=== PATIENT | male | born 1960 | race Hispanic/Latino ===

== ENCOUNTER 2020-04-13 12:03 | Emergency (ER) | payer SELFPAY ==
[2020-04-13] MEDS ORDERED: Caclcium Chloride 10% INJ SYR IV ONE (12:04)
[2020-04-13] MEDS ORDERED: NA CHLORIDE 0.9% 1,000 ML IV ONE (12:04)
[2020-04-13] MEDS ORDERED: AMIODARONE HCL 150 MG/3 ML INJ IV ONE (12:04)
[2020-04-13] MEDS ORDERED: EPINEPHrine 1 MG/10 ML SYR IV ONE (12:04)
[2020-04-13] MEDS ORDERED: EPINEPHrine 4 MG in NA CHLORIDE 0.9% 250 ML IV PRN (12:29)
[2020-04-13 12:43] LABS: Absolute Lymphocytes (CBC) 4.6 K/uL (0.7-4.9); Basophils % 0.5 % (0-1.3); Hematocrit 30.1 % (39.6-49.0); Lymphocytes % 59.9 % (15.3-44.8); MPV 9.7 fL (7.6-11.3); RBC Red Blood Cell Count 3.07 M/uL (4.33-5.43)
[2020-04-13] MEDS ORDERED: NOREPINEPHRINE 4mg/D5W 250mL 4 MG/250 ML BAG IV ONE ×3 (12:46→15:06)
[2020-04-13 12:47] LABS: Protime INR 1.39
[2020-04-13] MEDS ORDERED: NA CHLORIDE 0.9% 2,000 ML ONE (12:51)
[2020-04-13 13:05] LABS: Albumin 1.8 g/dL (3.4-5.0); Bilirubin Direct 0.1 mg/dL (0-0.2); Bilirubin Total 0.3 mg/dL (0.2-1.0); Magnesium 2.6 mg/dL (1.8-2.4); Potassium 3.2 mmol/L (3.5-5.1); Protein, Total 3.8 g/dL (6.4-8.2); Troponin (Emerg Dept Use Only) 0.4 ng/mL (0.0-0.045)
[2020-04-13 13:11] LABS: Barbiturates NEGATIVE (NEGATIVE); Benzodiazepines NEGATIVE (NEGATIVE); Cocaine NEGATIVE (NEGATIVE); METHAMPHETAM NEGATIVE (NEGATIVE); Methadone NEGATIVE (NEGATIVE); Opiates NEGATIVE (NEGATIVE); Phencyclidine NEGATIVE (NEGATIVE); THC Cannibis NEGATIVE (NEGATIVE)
--- NOTE | 2020-04-13 13:14 | RAD REPORT ---
EXAM DESCRIPTION: RAD - Chest Single View - 04/13/2020 1:08 pm CLINICAL HISTORY: CHEST PAIN Chest pain. COMPARISON: No comparisons FINDINGS: Portable technique limits examination quality. Moderate bilateral pulmonary opacities are present probably representing pulmonary edema. The heart i s normal in size. Tip of the ET tube is above the maribel. Enteric tube descends into the stomach.
[2020-04-13 13:20] LABS: Urine Blood 3+ (NEG); Urine Glucose NEGATIVE (NEG); Urine Protein 2+ (NEG); Urine Specific Gravity >1.030 (1.005-1.030)
--- NOTE | 2020-04-13 13:26 | EDPHYS ---
Physician Documentation [facility] Name: Noel Reid Age: 59 yrs Sex: Male : 1960 Arrival Date: 04/13/2020 Time: 12:05 Bed 3 Private MD: ED Physician Lm Gaona HPI: 04/13 12:43 This 59 yrs old Male presents to ER via EMS with complaints of CPR. juliann 12:43 Preceding the arrest, the patient collapsed, had chest pain, was dyspneic. The arrest juliann occurred at work. Pre-hospital course: The arrest was witnessed Bystanders at the scene performed CPR. EMS care prior to arrival: initiation of ACLS, peripheral IV, intubation oxygen, C-collar, backboard. The patient has not experienced similar symptoms in the past. Historical: - Allergies: 14:42 No Known Allergies; jl7 - Home Meds: 14:42 None [Active]; jl7 - PMHx: 14:42 Hyperlipidemia; jl7 - PSHx: 14:42 None; jl7 - Immunization history:: Adult Immunizations unknown. - Social history:: Smoking status: Patient denies any tobacco usage or history of. - Family history:: not pertinent. ROS: 12:43 Unable to obtain ROS due to cpr, intubated ,unresponsive. juliann Exam: 12:43 Eyes: Pupils: dilated, bilaterally, Extraocular movements: no acute changes. juliann 12:43 Cardiovascular: Rate: zero, Rhythm: pea, v fib, Pulses: not palpable, Heart sounds: none, Edema: is not appreciated, JVD: is noted bilaterally, to the angle of the jaw. 12:43 Respiratory: intubated, clear breath sounds. Vital Signs: 12:45 BP 77 / 57; Pulse 101; Resp 18 A; Temp 94.7; Pulse Ox 85% on ETT ambu; iw 13:00 BP 83 / 63; Pulse 86; Resp 38 A; Temp 95.2(C); Pulse Ox 98% on ETT vent; jl7 13:41 BP 93 / 67; Pulse 88; Resp 16 A; Temp 93.8; Pulse Ox 75% on ETT vent; iw 14:00 BP 107 / 89; Pulse 88; Resp 39; Temp 93.8; Pulse Ox 97% ; jl7 14:42 Temp 93.7(C); Weight 63.5 kg (R); MDM: 12:40 Patient medically screened. [facility] 12:46 Data reviewed: vital signs, nurses notes, lab test result(s), EKG, radiologic studies, [facility] CT scan, ultrasound. Data interpreted: see fran. Test interpretation: by ED physician or midlevel provider: ECG, not applicable, none. 13:20 Differential diagnosis: arrythmia, cardiac arrest, respiratory arrest. Physician [facility] consultation: Gabriele Alarcon MD and will see patient in ED, immediately. ED course: pt sp mi, cpr, v fib, unstable at this time, on pressors, dr la to cath when stable. 13:47 ED course: change of plans, to [facility], splenic laceration. [facility] 04/13 12:30 Order name: Basic Metabolic Panel; Complete Time: 13:40 [facility] 04/13 12:30 Order name: CBC with Diff; Complete Time: 13:49 [facility] 04/13 12:30 Order name: LFT's; Complete Time: 13:40 [facility] 04/13 12:30 Order name: Magnesium; Complete Time: 13:40 [facility] 04/13 12:30 Order name: NT PRO-BNP; Complete Time: 13:40 [facility] 04/13 12:30 Order name: PT-INR; Complete Time: 12:48 [facility] 04/13 12:30 Order name: Troponin (emerg Dept Use Only); Complete Time: 13:40 [facility] 04/13 12:43 Order name: UDS; Complete Time: 13:40 [facility] 04/13 12:43 Order name: ABG [facility] 04/13 12:58 Order name: Urine Dipstick--Ancillary (enter results); Complete Time: 13:40 ar 04/13 13:42 Order name: Type And Screen iw 04/13 13:48 Order name: Manual Differential; Complete Time: 13:49 [facility] 04/13 14:20 Order name: ABG sv 04/13 12:22 Order name: Echo w/ Doppler ar 04/13 12:30 Order name: XRAY Chest (1 view); Complete Time: 13:40 [facility] 04/13 13:22 Order name: Head C Spine Cap Wo Con EDKS 04/13 12:30 Order name: EKG; Complete Time: 12:31 04/13 12:30 Order name: Cardiac monitoring; Complete Time: 12:59 04/13 12:30 Order name: EKG - Nurse/Tech; Complete Time: 12:59 04/13 12:30 Order name: IV Saline Lock; Complete Time: 12:04/13 12:30 Order name: Labs collected and sent; Complete Time: 12:59 04/13 12:30 Order name: O2 Per Protocol; Complete Time: 12:04/13 12:30 Order name: O2 Sat Monitoring; Complete Time: 12:04/13 12:47 Order name: Ocampo; Complete Time: 12:50 juliann Administered Medications: 12:02 Drug: EPINEPHrine 0.1mg/mL 1:10,000 1 mg Route: IVP; Site: right antecubital; iw 12:03 Drug: amiodarone 300 mg Route: IVP; Site: right antecubital; iw 12:03 Drug: Sodium Bicarbonate 1 amp Route: IVP; Site: right antecubital; iw 12:09 Drug: EPINEPHrine 0.1mg/mL 1:10,000 1 mg Route: IVP; Site: right antecubital; iw 12:11 Drug: Sodium Bicarbonate 1 amp Route: IVP; Site: right antecubital; iw 12:12 Drug: EPINEPHrine 0.1mg/mL 1:10,000 1 mg Route: IVP; Site: right antecubital; iw 12:17 Drug: amiodarone 150 mg Route: IVP; Site: right antecubital; iw 12:18 Drug: Calcium Chloride 1 grams Route: IVP; Site: right femoral; iw 12:19 Drug: EPINEPHrine 0.1mg/mL 1:10,000 1 mg Route: IVP; Site: right femoral; iw 12:24 Drug: EPINEPHrine 0.1mg/mL 1:10,000 1 mg Route: IVP; Site: right antecubital; iw 12:45 Drug: Levophed (4 mg/250 mL D5W 4 mcg/min Route: IV; Rate: calculated rate; Site: right jl7 femoral; 14:45 Follow up: IV Status: Infusion continued upon transfer [facility] 12:50 Drug: Epinephrine Drip - (EPINEPHrine (PF) 4 mg, Sodium Chloride 0.9% 250 ml) Route: jl7 IV; Rate: calculated rate; Site: right femoral; 14:46 Follow up: Response: No adverse reaction; IV Status: Infusion continued upon transfer jl7 13:00 Drug: NS 0.9% 1000 ml Route: IV; Rate: 1 bolus; Site: right antecubital; jl7 14:00 Follow up: Response: No adverse reaction; IV Status: Completed infusion; IV Intake: jl7 1000ml 13:44 Drug: NS 0.9% 1000 ml Route: IV; Rate: 1 bolus; Site: right femoral; jl7 14:30 Follow up: Response: No adverse reaction; IV Status: Completed infusion; IV Intake: jl7 1000ml 14:30 Drug: Ativan 2 mg Route: IVP; Site: right antecubital; jl7 14:44 Not Given (Physician Discretion): Aspirin Suppository 300 mg NV once jl7 14:45 Drug: Ativan 2 mg Route: IVP; Site: right antecubital; jl7 16:02 Not Given (pt transferred): Pepcid 20 mg IVP once jl7 Disposition: 04/13/20 13:47 Transfer ordered to [facility]. Diagnosis are Cardiac arrest, Laceration of spleen, Respiratory arrest, Anemia, unspecified, Hyperglycemia, unspecified, Hypotension, unspecified, Hemoperitoneum, Hypotension. - Reason for transfer: Higher level of care. - Accepting physician is to [facility]. - Condition is Critical. - Problem is new. - Symptoms have worsened. Signatures: Dispatcher [employer] EDMS Lm Gaona MD MD cha Williams, Irene, Maria Luisa Parson RN, RN RN jl7 Corrections: (The following items were deleted from the chart) 13:10 12:44 EC Echo Doppler W/Color Flow+ECHO.RAD.BRZ ordered. EDKS EDMS 13:22 12:44 Head Brain Wo Cont+CT.RAD.BRZ ordered. [facility] EDMS 13:42 13:25 Hospitalization Ordered by Kurt Pearce DO for Inpatient Admission. Preliminary juliann diagnosis is Cardiac arrest; Respiratory failure, unspecified; Hypotension; Cardiogenic shock. Bed requested for Intensive Care Unit. Status is Inpatient Admission. Condition is Critical. Problem is new. Symptoms have improved. juliann 14:08 13:47 04/13/2020 13:47 Transfer ordered to [facility]. Diagnosis is juliann Cardiac arrest; Laceration of spleen; Respiratory arrest; Anemia, unspecified; Hyperglycemia, unspecified; Hypotension, unspecified. Reason for transfer: Higher level of care. Accepting physician is to [facility]. Condition is Critical. Problem is new. Symptoms have worsened. [facility] 14:10 14:08 04/13/2020 13:47 Transfer ordered to [facility]. Diagnosis is juliann Cardiac arrest; Laceration of spleen; Respiratory arrest; Anemia, unspecified; Hyperglycemia, unspecified; Hypotension, unspecified; Hemoperitoneum. Reason for transfer: Higher level of care. Accepting physician is to [facility]. Condition is Critical. Problem is new. Symptoms have worsened. [facility] 16:05 14:10 04/13/2020 13:47 Transfer ordered to [facility]. Diagnosis is jl7 Cardiac arrest; Laceration of spleen; Respiratory arrest; Anemia, unspecified; Hyperglycemia, unspecified; Hypotension, unspecified; Hemoperitoneum; Hypotension. Reason for transfer: Higher level of care. Accepting physician is to [facility]. Condition is Critical. Problem is new. Symptoms have worsened. juliann
--- NOTE | 2020-04-13 13:26 | ER ---
Nurse's Notes [facility] Name: Noel Reid Age: 59 yrs Sex: Male : 1960 Arrival Date: 04/13/2020 Time: 12:05 Bed 3 Private MD: Diagnosis: Cardiac arrest;Laceration of spleen;Respiratory arrest;Anemia, unspecified;Hyperglycemia, unspecified;Hypotension, unspecified;Hemoperitoneum;Hypotension Presentation: 04/13 12:01 Chief complaint: EMS states: toned at at 1137, pt unresponsive at construction site, iw witnessed arrest by coworkers, CPR/ACLS initiated by EMS at 1136, pt arrives to ER , CPR in progress. Care prior to arrival: Assisted ventilation, Oral intubation, CPR via thumper performed by EMS was defibrillated and is still in progress Medication(s) given: Epi X 4 , calcium chloride 1 gm, bicarb 80 IV initiated. 18 GA, in the left antecubital area, Oxygen administered. via AMBU bag defib X 6. Compressions began prior to arrival. 12:01 Method Of Arrival: EMS: [facility] iw 12:01 Acuity: JIMBO 1 iw 12:01 Coronavirus screen: Ebola Screen: Patient negative for fever greater than or equal to iw 101.5 degrees Fahrenheit, and additional compatible Ebola Virus Disease symptoms Patient denies exposure to infectious person. Patient denies travel to an Ebola-affected area in the 21 days before illness onset. No symptoms or risks identified at this time. Initial Sepsis Screen: Does the patient meet any 2 criteria? No. Patient's initial sepsis screen is negative. Does the patient have a suspected source of infection? No. Patient's initial sepsis screen is negative. Risk Assessment: Do you want to hurt yourself or someone else? Patient reports no desire to harm self or others. Onset of symptoms was April 13, 2020. 13:24 Care prior to arrival:. iw Historical: - Allergies: 14:42 No Known Allergies; jl7 - Home Meds: 14:42 None [Active]; jl7 - PMHx: 14:42 Hyperlipidemia; jl7 - PSHx: 14:42 None; jl7 - Immunization history:: Adult Immunizations unknown. - Social history:: Smoking status: Patient denies any tobacco usage or history of. - Family history:: not pertinent. Screenin:00 Abuse screen: unable to assess. Nutritional screening: unable to assess. Tuberculosis jl7 screening: No symptoms or risk factors identified. Fall Risk Total Sanchez Fall Scale indicates High Risk Score (45 or more points). Fall prevention measures have been instituted. Side Rails Up X 2 Placed Close to Nursing Station Frequent Obs/Assessments Occuring As available patient and family educated on Fall Prevention Program and Strategies. Assessment: 12:01 CPR assessment: unresponsive, intubated, Ambu ventilation. iw 12:01 Cardiac rhythm is V fib. iw 12:04 CPR assessment: unresponsive, intubated, Ambu ventilation. Cardiac rhythm is V fib. iw 12:28 CPR assessment: pt regained central pulses, CPR stopped. iw 13:13 CPR assessment: unresponsive, intubated, Ambu ventilation. iw 14:30 Reassessment: Pt appears restless, ERD notified, VO for 2 mg Ativan IVP x 2. jl7 14:45 Reassessment: Unable to assess BP due to pt posturing. jl7 15:00 Reassessment: [facility] at bedside to transport pt. jl7 Vital Signs: 12:45 BP 77 / 57; Pulse 101; Resp 18 A; Temp 94.7; Pulse Ox 85% on ETT ambu; iw 13:00 BP 83 / 63; Pulse 86; Resp 38 A; Temp 95.2(C); Pulse Ox 98% on ETT vent; jl7 13:41 BP 93 / 67; Pulse 88; Resp 16 A; Temp 93.8; Pulse Ox 75% on ETT vent; iw 14:00 BP 107 / 89; Pulse 88; Resp 39; Temp 93.8; Pulse Ox 97% ; jl7 14:42 Temp 93.7(C); Weight 63.5 kg (R); jl7 ED Course: 12:00 Patient has correct armband on for positive identification. Placed in gown. Bed in low jl7 position. Call light in reach. Side rails up X2. night monitor on. Pulse ox on. NIBP on. Warm blanket given. 12:01 Defibrillated with 200 joules. iw 12:01 Maintain EMS IV. Dressing intact. Good blood return noted. Site clean \T\ dry. Gauge \T\ iw site: 18 RAC. 12:01 Intubation: 8.0 Fr. ETT placed orally. intubated POND SAWYER by EMS. iw 12:04 Defibrillated with 200 joules. iw 12:05 Patient arrived in ED. iw 12:06 Defibrillated with 200 joules. iw 12:12 Defibrillated with 200 joules. iw 12:15 Defibrillated with 200 joules. iw 12:18 Triage completed. iw 12:25 Assisted provider with central line placement. Set up central line tray. Triple lumen iw line placed in right femoral. Line placed by Lm Gaona MD Dressed with 4X4s, Tape, Tegaderm, Blood was collected. Patient tolerated well. 12:39 Lm Gaona MD is Attending Physician. juliann 12:50 Maria Luisa Reid, KAY is Primary Nurse. jl7 13:10 XRAY Chest (1 view) In Process Unspecified. EDMS 13:24 Kurt Pearce DO is Hospitalizing Provider. juliann 13:27 Head C Spine Cap Wo Con In Process Unspecified. EDMS 14:30 EKG done, by bacteriology technician. reviewed by Lm Gaona MD. at1 14:42 Arm band placed on right wrist. jl7 15:41 Patient transferred, IV remains in place. intact, No redness/swelling at site. jl7 Administered Medications: 12:02 Drug: EPINEPHrine 0.1mg/mL 1:10,000 1 mg Route: IVP; Site: right antecubital; iw 12:03 Drug: amiodarone 300 mg Route: IVP; Site: right antecubital; iw 12:03 Drug: Sodium Bicarbonate 1 amp Route: IVP; Site: right antecubital; iw 12:09 Drug: EPINEPHrine 0.1mg/mL 1:10,000 1 mg Route: IVP; Site: right antecubital; iw 12:11 Drug: Sodium Bicarbonate 1 amp Route: IVP; Site: right antecubital; iw 12:12 Drug: EPINEPHrine 0.1mg/mL 1:10,000 1 mg Route: IVP; Site: right antecubital; iw 12:17 Drug: amiodarone 150 mg Route: IVP; Site: right antecubital; iw 12:18 Drug: Calcium Chloride 1 grams Route: IVP; Site: right femoral; iw 12:19 Drug: EPINEPHrine 0.1mg/mL 1:10,000 1 mg Route: IVP; Site: right femoral; iw 12:24 Drug: EPINEPHrine 0.1mg/mL 1:10,000 1 mg Route: IVP; Site: right antecubital; iw 12:45 Drug: Levophed (4 mg/250 mL D5W 4 mcg/min Route: IV; Rate: calculated rate; Site: right jl7 femoral; 14:45 Follow up: IV Status: Infusion continued upon transfer jl7 12:50 Drug: Epinephrine Drip - (EPINEPHrine (PF) 4 mg, Sodium Chloride 0.9% 250 ml) Route: jl7 IV; Rate: calculated rate; Site: right femoral; 14:46 Follow up: Response: No adverse reaction; IV Status: Infusion continued upon transfer jl7 13:00 Drug: NS 0.9% 1000 ml Route: IV; Rate: 1 bolus; Site: right antecubital; jl7 14:00 Follow up: Response: No adverse reaction; IV Status: Completed infusion; IV Intake: jl7 1000ml 13:44 Drug: NS 0.9% 1000 ml Route: IV; Rate: 1 bolus; Site: right femoral; jl7 14:30 Follow up: Response: No adverse reaction; IV Status: Completed infusion; IV Intake: jl7 1000ml 14:30 Drug: Ativan 2 mg Route: IVP; Site: right antecubital; jl7 14:44 Not Given (Physician Discretion): Aspirin Suppository 300 mg MN once jl7 14:45 Drug: Ativan 2 mg Route: IVP; Site: right antecubital; jl7 16:02 Not Given (pt transferred): Pepcid 20 mg IVP once jl7 Intake: 14:00 IV: 1000ml; Total: 1000ml. jl7 14:30 IV: 1000ml; Total: 2000ml. jl7 Outcome: 13:25 Decision to Hospitalize by Provider. juliann 13:47 ER care complete, transfer ordered by . juliann 15:41 Transferred by helicopter to [facility], Transfer form completed. X-rays sent jl7 w/ patient. 15:41 Condition: stable 15:41 Discharge instructions given to family, Instructed on the need for transfer, Demonstrated understanding of instructions. 16:05 Patient left the ED. jl7 Signatures: Dispatcher [employer] Lm Tellez MD MD cha Williams, Irene, KAY RN Karen White, quenching car operator EKG Tat1 Maria Luisa Reid, RN RN jl7 Corrections: (The following items were deleted from the chart) 14:16 14:14 CPR assessment: pt regained central pulses, CPR stopped [facility] :44 14:44 NS 0.9% 1000 ml IV at 1 bolus in right femoral jl7 jl7
[2020-04-13 13:38] LABS: Arterial Blood Carboxyhemoglob 0.5 % (0-1.5); Blood Gas Oxyhemoglobin 80.1 % (94-97); Blood O2 Saturation 81.5 % (92-98.5)
[2020-04-13 13:48] LABS: Blood Morphology Comment NOT SEEN (NOT SEEN); Platelet Estimate ADEQ
--- NOTE | 2020-04-13 13:53 | RAD REPORT ---
EXAM DESCRIPTION: CT - Head C Spine Cap Wo Con - 04/13/2020 1:26 pm CLINICAL HISTORY: cprhead, neck, chest and abdomen injury COMPARISON: No comparisons TECHNIQUE: Axial [address] head images were obtained. Axial [address] cervical spine images were obtain ed with sagittal and coronal reconstruction images reviewed. Axial 5 mm images of the chest, abdomen and pelvis were obtained. All CT scans are performed using dose optimization technique as appropriate and may include automated exposure control or mA/KV adjustment according to patient size. FINDINGS: No intracranial hemorrhage, mass or edema. No midline shift or abnormal fluid collection. Mastoid air cells and paranasal sinuses are clear. No skull fracture. Patient has mild atrophy and c hronic ischemic change. Cervical bodies are normal in height and alignment. No fracture or acute bone finding.No disk space n arrowing.No prevertebral soft tissue thickening or paraspinal mass.Central canal detail is inherently limited on CT imaging.Detail is limited due to motion. NG tube is in place in good position. Endotracheal tube is in place with the tip at the top of the ao rtic arch. Bilateral airspace opacification is present in the posterior lung brunson. Small amount of bilateral pleural fluid is suspected. Anterior lung brunson are generate clear of any process. Posteri or lung field atelectasis changes are present as well. There is no pneumothorax. No mediastinal hem atoma and the aorta and pulmonary arteries are unremarkable. No chest will mass or abnormal axillary finding. Ribcage cannot be accurately assessed for fractures due to the extent of respiratory motion. No liver abnormality identified. Splenic laceration or fracture is present. Due to motion and absence of contrast splenic detail is limited. Subcapsular hematoma is estimated at 2-3 cm. Central hematoma is difficult to assess. Best estimate is a grade II-III splenic injury There is hemoperitoneum adjac ent to the spleen and collecting in the dependent portion of the pelvis. No gallbladder or biliary tree abnormality. No hydronephrosis or suspicious renal finding. Pyelonephr itis and isodense masses are not excluded. Urinary bladder is fully contracted around a Ocampo cathete r. No bowel injury or significant finding. No free air or pneumatosis. No hernia, mass or bulky lymph adenopathy. No significant bony finding. Findings discussed with the referring physician 1:42 p.m. IMPRESSION: Splenic laceration with hemorrhagic changes around the spleen and hemoperitoneum collect ing in the dependent portion of the pelvis. Etiology is not seen. Ribs adjacent to the spleen appear intact. Due to motion and absence of contrast, splenic detail is limited. Best estimate is a grade II-III spl enic injury. Active bleeding cannot be assessed in the absence of contrast. No significant CT Head finding. No significant CT cervical spine finding. CT chest imaging shows extensive posterior lung field atelectasis with bilateral posterior lung field airspace opacification that could be pulmonary edema or aspiration changes. Anterior lung brunson are spared. ET tube and NG tube are in good position. No additional acute abdominal or pelvic findings. Significant bone abnormality is not seen. The amount of respiratory motion present limits the ability to accurately assess for rib fracture. No displaced rib fractures seen.
[2020-04-13 14:26] LABS: Arterial Blood Carboxyhemoglob 0.5 % (0-1.5); Blood Gas Oxyhemoglobin 76.3 % (94-97); Blood O2 Saturation 77.5 % (92-98.5)
[2020-04-13] MEDS ORDERED: LORazepam 2 MG/ML VIAL ONE ×2 (14:26→14:36)
--- NOTE | 2020-04-13 14:30 | ECHO ---
HEIGHT: ft in WEIGHT: lb oz DATE OF STUDY: 04/13/[address]: Lm Gaona MD 2-DIMENSIONAL: YES M.MODE: YES DOPPLER: YES COLOR FLOW: YES TDS: NO PORTABLE: NO DEFINITY: NO BUBBLE STUDY: NO DIAGNOSIS: CPR CARDIAC HISTORY: CATHERIZATION: SURGERY: PROSTHETIC VALVE: PACEMAKER: MEASUREMENTS (cm) DIASTOLIC (NORMALS) SYSTOLIC (NORMALS) IVSd 1.0 (0.6-1.2) LA Diam (1.9-4.0) LVEF 30-35% LVIDd 3.9 (3.5-5.7) LVIDs 3.0 (2.0-3.5) %FS 22% LVPWd 1.1 (0.6-1.2) Ao Diam 2.4 (2.0-3.7) 2 DIMENSIONAL ASSESSMENT: RIGHT ATRIUM: NORMAL LEFT ATRIUM: NORMAL RIGHT VENTRICLE: NORMAL LEFT VENTRICLE: MODERATLY DEPRESSED EJECTION FRACTION TRICUSPID VALVE: MODERATE TRICUSPID REGURGITATION MITRAL VALVE: MILD MITRAL REGURGITATION PULMONIC VALVE: NORMAL AORTIC VALVE: NORMAL PERICARDIAL EFFUSION: NONE AORTIC ROOT: NORMAL LEFT VENTRICULAR WALL MOTION: SEVERE ANTERIOR AND ANTEROSEPTAL HYPOKINESIS. DOPPLER/COLOR FLOW: AT LEAST MILD PULMONARY HYPERTENSION. COMMENTS: MODERATELY DEPRESSED LEFT VENTRICULAR EJECTION FRACTION 30-35%. ANTEROSEPTAL AND ANTERIOR HYPOKINESIS AND APICAL AKINESIS. DIASTOLIC DYSFUNCTION. TECHNOLOGIST: PELON CALIXTO
[2020-04-13] MEDS ORDERED: NOREPINEPHRINE 4 MG/4 ML VIAL ONE (15:07)
[2020-04-13 16:16] VITALS: BP 107/89; TEMP 93.7; O2SAT 97
--- NOTE | 2020-04-13 22:12 | CON ---
Date of Consultation: 04/13/2020 Reason For Consultation: Acute myocardial infarction and post cardiac arrest status. History Of Present Illness: This is a 59-year-old male who was working, suddenly collapsed on the gr ound. EMS arrived. The patient was in VFib. He was shocked 5 times and he was brought in, in a CPR status and required a close to 55 minutes of active ACLS resuscitation until regained a good rhythm and I was asked to evaluate the patient. Once the patient had an effective rhythm, at that time the patient was intubated and completely unresponsive. Reviewed the EKG suggested acute myocardial infar ction. Also, did a bedside echocardiogram that showed significant anterior wall motion abnormalities suggestive of LAD, acute myocardial infarction. However, CT scan of head and abdomen showed signifi cant splenic laceration with pneumoperitoneum about at least 150 mL of blood in the abdomen. Past Medical History: Not known. Medications: Not known. Allergies: NOT KNOWN. Social History: Not known. Family History: Not known. Patient is unresponsive, cannot give any history. Physical Examination: Vital Signs: Temperature 93.7, pulse 88, breathing at 39, blood pressure 107/89, saturating 97% on t he ventilator. General: This is a middle-aged male on the ventilator, breathing over the vent. Head and Neck: Pupils are fixed and dilated. There is JVD. No cervical lymphadenopathy. Lungs: Crackles both lung brunson with increase in respiratory effort. Heart: Irregular without extra sounds. Abdomen: Soft. Bowel sounds positive. No rigidity or rebound. Extremities: No edema, clubbing, cyanosis. Skin: No rashes. Neuro: He is completely unresponsive. Lymph Nodes: No cervical or axillary lymphadenopathy. Investigations: His troponin was 0.4. Creatinine was 1.2. AST 778, ALT 733. The CT scan abdomen a nd pelvis, chest and spine all trauma protocol showed that there is no brain bleed, but there was a s plenic laceration found with hemorrhagic changes around the spleen and hemoperitoneum is found. Assessment And Plan: Status post cardiac arrest, likely acute myocardial infarction, likely involvin g the left anterior descending. The initial plan was to take the patient emergently to the cardiac c ath laboratory. However, the findings of CT scans that showed splenic laceration and blood in the co llection the abdomen that will make coronary intervention contraindicated and that recommended a childers sfer to higher level of care facility to be managed at the tertiary center with a team involving Card iology and Surgery. I discussed the case in detail with the ER physician. I also recommended hypoth ermia protocol due to the prolonged resuscitation as the patient likely will develop an anoxic brain damage. /GERMAN Voice ID: [id number] Report ID: [id number]
--- NOTE | 2020-04-14 06:40 | EKG ---
Test Date: 2020-04-13 Test Time: 12:36:22 Rehab Liaison: AJYA MEASUREMENT RESULTS: Intervals: Rate: 116 [place]: QRSD: 170 QT: 512 QTc: 711 [place]: P: [place]: QRS: 268 T: 56 INTERPRETIVE STATEMENTS: Suspect arm lead reversal, interpretation assumes no reversal Wide QRS rhythm with frequent premature ventricular complexes Right bundle branch block Inferior infarct, age undetermined Anterolateral infarct, possibly acute ACUTE [place] Abnormal ECG No previous ECG available for comparison Electronically Signed On 04-14-20 06:39:43 CDT by Gabriele Alarcon
--- NOTE | 2020-04-14 10:58 | EKG ---
Test Date: 2020-04-13 Test Time: 13:54:12 Claim Analyst: MARILYN MEASUREMENT RESULTS: Intervals: Rate: 87 [place]: QRSD: 134 QT: 416 QTc: 500 [place]: P: [place]: QRS: 165 T: 81 INTERPRETIVE STATEMENTS: Wide QRS rhythm Right bundle branch block Anteroseptal infarct, possibly acute ACUTE [place] Abnormal ECG Compared to ECG 04/13/2020 12:36:22 Ventricular premature complex(es) no longer present Myocardial infarct finding still present Electronically Signed On 04-14-20 10:54:11 CDT by Gabriele Alarcon
== END 2020-04-13 16:05 | disposition short-term general hospital (02) ==
LOC: ER 12:03
DX: I46.9 Cardiac arrest, cause unspecified (principal); S36.039A Unspecified laceration of spleen, initial encounter; K66.1 Hemoperitoneum; I95.9 Hypotension, unspecified; R73.9 Hyperglycemia, unspecified; D64.9 Anemia, unspecified; E78.5 Hyperlipidemia, unspecified; W19.XXXA Unspecified fall, initial encounter; Y93.9 Activity, unspecified; Y92.89 Other specified places as the place of occurrence of the external cause; Y99.8 Other external cause status
CPT/HCPCS: 31500; 36415; 70450; 71045; 71250; 72125; 80048; 80076; 80307; 81003; 82805; 83735; 83880; 84484; 85025; 85610; 86850; 86900; 86901; 92950; 92960; 93005; 93306; 94002; 94003; 99291; 99292; J0171; J0282; J7030; J7060